=== PATIENT | female | born 1960 | race Caucasian/White ===

== ENCOUNTER 2023-04-21 21:08 | Emergency (ER) | payer OTHER ==
[~2023-04-21] VITALS: Ht 167.6 cm; Wt 63.5 kg
[2023-04-21 21:15] VITALS: TEMP 98.1
[2023-04-21] MEDS ORDERED: IV NS 0.9% 1,000 ML BAG IV ONE (21:30)
[2023-04-21 21:50] LABS: HEMOGLOBIN 13.3 g/dL (11.5-14.8); RED BLOOD CELL COUNT(AUTO) 4.34 MIL/uL (4.0-5.2); WHITE BLOOD COUNT (AUTO) 7.8 K/uL (4.3-11.0)
[2023-04-21 21:51] LABS: BASOPHILS # (AUTO) 0.1 K/uL (0.0-0.2); BASOPHILS % (AUTO) 1.7 % (0.0-2.0); EOSINOPHILS # (AUTO) 0.2 K/uL (0.0-0.7); EOSINOPHILS % (AUTO) 2.5 % (0.0-6.0); HEMATOCRIT 41 % (33-45); LYMPHOCYTES # (AUTO) 1.9 K/uL (0.8-4.8); LYMPHOCYTES % (AUTO) 24.6 % (20.0-44.0); MEAN CORPUSCULAR HEMOGLOBIN 31 PG (26.0-33.0); MEAN CORPUSCULAR HGB CONC 33 g/dl (31.0-36.0); MEAN CORPUSCULAR VOLUME 94 fL (82-100); MONOCYTES # (AUTO) 0.4 K/uL (0.1-1.30); MONOCYTES % (AUTO) 5.3 % (2.0-12.0); NEUTROPHILS # (AUTO) 5.2 K/uL (1.8-8.9); NEUTROPHILS % (AUTO) 65.9 % (43.0-81.0); PLATELET COUNT (AUTO) 299 K/uL (150-450); RED CELL DISTRIBUTION WIDTH 12.9 % (11.5-15.0)
[2023-04-21 21:59] LABS: CALCIUM, SERUM 8.7 mg/dL (8.5-10.1); CARBON DIOXIDE 27 mmol/L (21-32); CHLORIDE 100 mmol/L (98-107); CREATININE 0.9 mg/dL (0.6-1.3); GLUCOSE 150 mg/dL (74-106); POTASSIUM 3.9 mmol/L (3.5-5.1); SODIUM SERUM 136 mmol/L (136-145); UREA NITROGEN, BLOOD 12 mg/dL (7-18)
[2023-04-21 22:04] LABS: ALANINE AMINOTRANSFERASE 37 U/L (12-78); ALKALINE PHOSPHATASE 85 U/L (46-116); ASPARTATE AMINOTRANSFERASE 27 U/L (15-37); BILIRUBIN,DIRECT 0.1 mg/dL (0.0-0.2); BILIRUBIN,TOTAL 0.3 mg/dL (0.2-1.0); TOTAL PROTEIN, SERUM 7.7 g/dL (6.4-8.2)
[2023-04-21 22:27] LABS: INR 0.97 (0.91-1.10); PARTIAL THROMBOPLASTIN TIME 23.9 SEC (24.3-34.3); PROTHROMBIN TIME 10.3 SECS (9.2-11.1)
[2023-04-22 00:03] VITALS: BP 120/85; O2SAT 98
== END 2023-04-22 00:04 | disposition home or self-care (01) ==
LOC: ER 21:15
DX: R55 Syncope and collapse (principal); M19.90 Unspecified osteoarthritis, unspecified site; Z60.2 Problems related to living alone
CPT/HCPCS: 99285; 96360; 71045; 93005; 85025; 80048; 80076; 36415; 84484; 85730; 82962; J7030